=== PATIENT | female | born 1960 | race Two or more races ===

== ENCOUNTER 2016-06-05 12:15 | Inpatient (IN) | payer MEDICAID ==
[2016-06-05] VITALS (7 sets, daily range): BP systolic 96–166; BP diastolic 53–89
[~2016-06-05] VITALS: Ht 160 cm; Wt 104.3 kg
[2016-06-05 13:11] LABS: MEAN CORPUSCULAR HGB CONC 33.5 G/DL (32.0-36.0); MEAN CORPUSCULAR VOLUME 90 FL (80-99); MEAN PLATELET VOLUME 10.7 FL (6.5-10.1); PLATELET COUNT 182 K/UL (150-450); RED CELL DISTRIBUTION WIDTH 11.2 % (11.6-14.8); WHITE BLOOD COUNT 21.2 K/UL (4.8-10.8)
[2016-06-05 13:16] LABS: TROPONIN I < 0.30 ng/mL (<=0.30)
[2016-06-05 13:19] LABS: ALBUMIN/GLOBULIN RATIO 1.2 (1.0-2.7); CALCIUM 9.9 mg/dL (8.6-10.2); CREATININE 1.1 mg/dL (0.5-0.9); GLOMERULAR FILTRATION RATE 51.3 mL/min (>60); POTASSIUM 5.2 mEQ/L (3.4-4.9); TOTAL PROTEIN 7.2 g/dL (6.6-8.7)
[2016-06-05 14:01] LABS: ANISOCYTOSIS 1+; BAND NEUTROPHILS % (MANUAL) 2 % (0-8); BASOPHILS % (MANUAL) 0 % (0-2); EOSINOPHILS % (MANUAL) 0 % (0-3); LYMPHOCYTES % (MANUAL) 7 % (20-45); NEUTROPHILS % (MANUAL) 86 % (45-75); PLATELET ESTIMATE ADEQUATE; PLATELET MORPHOLOGY NORMAL; TOTAL CELLS COUNTED 100
[2016-06-05 14:44] LABS: KETONES,URINE 1+ (NEGATIVE); LEUKOCYTE ESTERASE ,URINE 3+ (NEGATIVE); NITRITE,URINE NEGATIVE (NEGATIVE); PH,URINE 6 (4.5-8.0); PROTEIN,URINE 1+ (NEGATIVE); UROBILINOGEN,URINE NORMAL MG/DL (0.0-1.0)
[2016-06-05] MEDS ORDERED: cefTRIAXone 1 GM in NS 55 ML IVPB ONE (15:30)
--- NOTE | 2016-06-05 15:31 | Emergency Room Report ---
History of Present Illness General Chief Complaint: Abdominal Pain Source: Patient, EMS (JOANNA IVAN D.O.) Present Illness HPI This pt states that she has had lower abdominal pain for the past couple days. She also has fever/chills. No vomiting. +constipation. No diarrhea. No diarrhea. No cp/sob. No other complaints. She also notes that her BS has been elevated. (JOANNA IVAN D.O.) Allergies: Coded Allergies: No Known Allergies (Unverified , 06/05/16) Patient History Past Medical History: see triage record, DM, HTN Social History: Denies: alcohol use, drug use, smoking Reviewed Nursing Documentation: PMH: Agreed, PSxH: Agreed (JOANNA IVAN D.O. ) Nursing Documentation-PMH Past Medical History: No History, Except For Hx Hypertension: Yes Hx Diabetes: Yes (JOANNA IVAN D.O.) Review of Systems All Other Systems: negative except mentioned in HPI (JOANNA IVAN D.O.) Physical Exam Vital Signs Date Time Temp Pulse Resp B/P Pulse Ox O2 Delivery O2 Flow Rate FiO2 06/05/16 12:12 97 20 117/66 97 Room Air Sp02 EP Interpretation: reviewed, normal General Appearance: no apparent distress, alert, GCS 15, non-toxic Head: normocephalic, atraumatic Eyes: bilateral eye PERRL, bilateral eye normal inspection ENT: hearing grossly normal, normal pharynx, no angioedema, normal voice Neck: full range of motion, supple/symm/no masses Respiratory: chest non-tender, lungs clear, normal breath sounds, speaking full sentences Cardiovascular #1: regular rate, rhythm, no edema Gastrointestinal: normal bowel sounds, soft, non-distended, no guarding, no rebound, tenderness - LLQ and L. CVA ttp Rectal: deferred Genitourinary: normal inspection, CVA tenderness (L) Musculoskeletal: non-tender Neurologic: alert, oriented x3, responsive, motor strength/tone normal, sensory intact, speech normal Psychiatric: judgement/insight normal, memory normal, mood/affect normal, no suicidal/homicidal ideation Skin: normal color, no rash, warm/dry, well hydrated (JOANNA IVAN D.O.) Medical Decision Making Diagnostic Impression: Primary Impression: Pyelonephritis Additional Impressions: Hyperglycemia Uncontrolled diabetes mellitus ER Course This pt presents with elevated WBC. She is found to have pyelonephritis. She is ttp on PE, so I am obtaining a CT abdomen and pelvis to assess for diverticulitis, infected stone or other intra-abdominal process that could be causing such a high elevation in WBC. She was given broad spectrum abx and aggressive IVF given the uncontrolled DM. CT is pending at this time. Inpatient physician to f/u on results. She will be admitted to [facility]. Labs Test 06/05/16 12:30 06/05/16 14:30 White Blood Count 21.2 K/UL (4.8-10.8) Red Blood Count 5.10 M/UL (4.20-5.40) Hemoglobin 15.3 G/DL (12.0-16.0) Hematocrit 45.7 % (37.0-47.0) Mean Corpuscular Volume 90 FL (80-99) Mean Corpuscular Hemoglobin 30.0 PG (27.0-31.0) Mean Corpuscular Hemoglobin Concent 33.5 G/DL (32.0-36.0) Red Cell Distribution Width 11.2 % (11.6-14.8) Platelet Count 182 K/UL (150-450) Mean Platelet Volume 10.7 FL (6.5-10.1) Neutrophils (%) (Auto) % (45.0-75.0) Lymphocytes (%) (Auto) % (20.0-45.0) Monocytes (%) (Auto) % (1.0-10.0) Eosinophils (%) (Auto) % (0.0-3.0) Basophils (%) (Auto) % (0.0-2.0) Differential Total Cells Counted 100 Neutrophils % (Manual) 86 % (45-75) Lymphocytes % (Manual) 7 % (20-45) Monocytes % (Manual) 5 % (1-10) Eosinophils % (Manual) 0 % (0-3) Basophils % (Manual) 0 % (0-2) Band Neutrophils 2 % (0-8) Platelet Estimate Adequate Platelet Morphology Normal Anisocytosis 1+ Sodium Level 138 mEQ/L (135-145) Potassium Level 5.2 mEQ/L (3.4-4.9) Chloride Level 96 mEQ/L (98-107) Carbon Dioxide Level 24 mEQ/L (20-30) Anion Gap 18 (5-15) Blood Urea Nitrogen 19 mg/dL (7-23) Creatinine 1.1 mg/dL (0.5-0.9) Estimat Glomerular Filtration Rate 51.3 mL/min (>60) Glucose Level 425 mg/dL (74-106) Calcium Level 9.9 mg/dL (8.6-10.2) Total Bilirubin 0.4 mg/dL (0.0-1.2) Aspartate Amino Transf (AST/SGOT) 24 U/L (5-40) Alanine Aminotransferase (ALT/SGPT) 16 U/L (3-33) Alkaline Phosphatase 97 U/L (35-104) Troponin I < 0.30 ng/mL (<=0.30) Total Protein 7.2 g/dL (6.6-8.7) Albumin 4.0 g/dL (3.5-5.2) Globulin 3.2 g/dL Albumin/Globulin Ratio 1.2 (1.0-2.7) Lipase 32 U/L (< 60) Urine Color Yellow Urine Appearance Clear Urine pH 6 (4.5-8.0) Urine Specific [place] 1.010 (1.005-1.035) Urine Protein 1+ (NEGATIVE) Urine Glucose (UA) 4+ (NEGATIVE) Urine Ketones 1+ (NEGATIVE) Urine Occult Blood 5+ (NEGATIVE) Urine Nitrite Negative (NEGATIVE) Urine Bilirubin Negative (NEGATIVE) Urine Urobilinogen Normal MG/DL (0.0-1.0) Urine Leukocyte Esterase 3+ (NEGATIVE) Urine HCG, Qualitative Negative (JOANNA IVAN D.O.) ER Course Please refer to the initial note for the history exam and initial workup At this time patient's white blood cell count is elevated Urine sample appears infected CT was obtained to evaluate further pathology which was essentially benign Patient initiated on IV antibiotics and fluids Glucose is also elevated and patient admitted for further inpatient care Labs Test 06/05/16 12:30 06/05/16 14:30 White Blood Count 21.2 K/UL (4.8-10.8) Red Blood Count 5.10 M/UL (4.20-5.40) Hemoglobin 15.3 G/DL (12.0-16.0) Hematocrit 45.7 % (37.0-47.0) Mean Corpuscular Volume 90 FL (80-99) Mean Corpuscular Hemoglobin 30.0 PG (27.0-31.0) Mean Corpuscular Hemoglobin Concent 33.5 G/DL (32.0-36.0) Red Cell Distribution Width 11.2 % (11.6-14.8) Platelet Count 182 K/UL (150-450) Mean Platelet Volume 10.7 FL (6.5-10.1) Neutrophils (%) (Auto) % (45.0-75.0) Lymphocytes (%) (Auto) % (20.0-45.0) Monocytes (%) (Auto) % (1.0-10.0) Eosinophils (%) (Auto) % (0.0-3.0) Basophils (%) (Auto) % (0.0-2.0) Differential Total Cells Counted 100 Neutrophils % (Manual) 86 % (45-75) Lymphocytes % (Manual) 7 % (20-45) Monocytes % (Manual) 5 % (1-10) Eosinophils % (Manual) 0 % (0-3) Basophils % (Manual) 0 % (0-2) Band Neutrophils 2 % (0-8) Platelet Estimate Adequate Platelet Morphology Normal Anisocytosis 1+ Sodium Level 138 mEQ/L (135-145) Potassium Level 5.2 mEQ/L (3.4-4.9) Chloride Level 96 mEQ/L (98-107) Carbon Dioxide Level 24 mEQ/L (20-30) Anion Gap 18 (5-15) Blood Urea Nitrogen 19 mg/dL (7-23) Creatinine 1.1 mg/dL (0.5-0.9) Estimat Glomerular Filtration Rate 51.3 mL/min (>60) Glucose Level 425 mg/dL (74-106) Calcium Level 9.9 mg/dL (8.6-10.2) Total Bilirubin 0.4 mg/dL (0.0-1.2) Aspartate Amino Transf (AST/SGOT) 24 U/L (5-40) Alanine Aminotransferase (ALT/SGPT) 16 U/L (3-33) Alkaline Phosphatase 97 U/L (35-104) Troponin I < 0.30 ng/mL (<=0.30) Total Protein 7.2 g/dL (6.6-8.7) Albumin 4.0 g/dL (3.5-5.2) Globulin 3.2 g/dL Albumin/Globulin Ratio 1.2 (1.0-2.7) Lipase 32 U/L (< 60) Urine Color Yellow Urine Appearance Slightly cloudy Urine pH 6 (4.5-8.0) Urine Specific [place] 1.010 (1.005-1.035) Urine Protein 1+ (NEGATIVE) Urine Glucose (UA) 4+ (NEGATIVE) Urine Ketones 1+ (NEGATIVE) Urine Occult Blood 5+ (NEGATIVE) Urine Nitrite Negative (NEGATIVE) Urine Bilirubin Negative (NEGATIVE) Urine Urobilinogen Normal MG/DL (0.0-1.0) Urine Leukocyte Esterase 3+ (NEGATIVE) Urine HCG, Qualitative Negative (STEPH BLACK.Maureen) Rhythm Strip Diag. Results EP Interpretation: yes Rate: 90's Rhythm: NSR, no PVC's, no ectopy (JOANNA IVAN.Elmer.) EP Interpretation: yes Rate: 66 Rhythm: NSR, no PVC's, no ectopy (STEPH BLACK.Elmer.) Chest X-Ray Diagnostic Results EP Interpretation: Yes Findings: no consolidation, no effusion, no pneumothorax (STEPH BLACK.Elmer.) CT/MRI/US Diagnostic Results CT/MRI/US Diagnostic Results : Imaging Test Ordered: CT ABD/PELVIS (JOANNA IVAN.O.) CT/MRI/US Diagnostic Results : Impression CT abdomen pelvisIMPRESSION: Apparent long segment mural thickening of sigmoid colon and rectum, may be due to poor distention. Pathologic mural thickening, especially but not necessarily limited to proctocolitis, must be considered. Colonoscopy suggested for further evaluation. No other evidence of acute abdominopelvic disease, with limitation as described. Subtle but potentially significant abnormalities the gastrointestinal tract may be missed. Repeat CT scan with full oral and IV contrast preparation recommended for more complete evaluation, as clinically indicated Hepatic steatosis Diffuse pancreatic atrophy Probable small right renal cortical cyst Suggestion of left hydrosalpinx. Ultrasound correlation recommended. Pulmonary bibasal interstitial prominence, nonspecific, acuity indeterminate Degenerative spondylosis (STEPH BLACK D.O.) Last Vital Signs Date Time Temp Pulse Resp B/P Pulse Ox O2 Delivery O2 Flow Rate FiO2 06/05/16 12:16 20 117/66 97 Room Air 06/05/16 12:12 97 (JOANNA IVAN D.O.) Status: improved (STEPH BLACK D.O.) Disposition: ADMITTED INPATIENT Condition: Serious Scripts Metronidazole* (FLAGYL*) 500 Mg Tablet 500 MG ORAL EVERY 8 HOURS, #15 TAB Prov: Jordan (Temi),July [employer] 06/08/16 Ciprofloxacin* (CIPRO*) 500 Mg Tablet 500 MG PO BID, #10 TAB Prov: July Ortega NP (Vanchtein) 06/08/16 Referrals: [facility],REFERRING (PCP) JOANNA IVAN D.O. Jun 05, 2016 15:31 STEPH BLACK D.O. Jun 05, 2016 18:45
--- NOTE | 2016-06-05 16:06 | Diagnostic Imaging Report ---
Indications: Right lower quadrant abdominal pain, nausea, constipation for 2 days Technique: Continuous helical CT imaging of the abdomen and pelvis was performed with automatic exposure control following administration of nonionic IV contrast only, on a Siemens sensation [address] scanner. Axial, coronal, sagittal images were reconstructed at 5 mm slice thickness. No oral contrast was administered per requesting physician's order, despite no contraindications listed in either submitted clinical data or tech note.. CTDI volume(s): 19 mGy Total DLP: 1043 mGy-cm Findings: Comparison: None Lack of oral contrast limits evaluation of gastrointestinal tract, nondilated throughout. Appendix unremarkable. Colon from descending sigmoid junction through rectum is poorly distended with suggestion of circumferential mural thickening. No additional mural thickening, adjacent stranding, extraluminal gas or fluid collections identified. Liver demonstrates mildly, diffusely decreased parenchymal attenuation. Pancreas demonstrates diffuse parenchymal fatty replacement. 3 mm circumscribed low-attenuation focus upper pole cortex right kidney too small to accurately characterize. Elongated/tubular low-attenuation focus in left adnexal region, 1 cm diameter by 4.5 cm in length, adjacent to left ovary. Gallbladder, spleen, adrenal glands, left kidney, unopacified ureters and urinary bladder, uterus, right adnexal region, vascular structures, retroperitoneum, mesentery, remainder visualized abdominopelvic anatomy unremarkable. Mildly increased interstitial markings in both lung bases. Disc marginal osteophytes scattered throughout lumbar, lower thoracic spine. IMPRESSION: Apparent long segment mural thickening of sigmoid colon and rectum, may be due to poor distention. Pathologic mural thickening, especially but not necessarily limited to proctocolitis, must be considered. Colonoscopy suggested for further evaluation. No other evidence of acute abdominopelvic disease, with limitation as described. Subtle but potentially significant abnormalities the gastrointestinal tract may be missed. Repeat CT scan with full oral and IV contrast preparation recommended for more complete evaluation, as clinically indicated Hepatic steatosis Diffuse pancreatic atrophy Probable small right renal cortical cyst Suggestion of left hydrosalpinx. Ultrasound correlation recommended. Pulmonary bibasal interstitial prominence, nonspecific, acuity indeterminate Degenerative spondylosis
[2016-06-05 16:10] LABS: APPEARANCE,URINE SLIGHTLY CLOUDY
[2016-06-05] MEDS ORDERED: Ketorolac 30mg Inj IV PRN (18:45)
[2016-06-05] MEDS ORDERED: Miralax 17gm pkt ORAL PRN (18:45)
[2016-06-05] MEDS ORDERED: Morphine Sulfate 2mg/ml Inj IVP PRN (18:45)
[2016-06-05] MEDS ORDERED: Nitroglycerin Subl 0.4mg tab (Bottle Of 25) SL PRN (18:45)
[2016-06-05] MEDS ORDERED: Mylanta II UD 30ml ORAL PRN (18:45)
[2016-06-05] MEDS ORDERED: DuoNeb 0.5-3(2.5)mg/3ml neb HHN PRN (18:45)
[2016-06-05] MEDS ORDERED: GLIPIZIDE XL10 MG ORAL (19:45)
[2016-06-05] MEDS ORDERED: ASPIRIN-LOW81 MG ORAL (19:51)
[2016-06-05] MEDS ORDERED: METFORMIN HCL1000 M1 ORAL (19:51)
[2016-06-05] MEDS ORDERED: AMLODIPINE BESYL5 MG ORAL (19:51)
[2016-06-05] MEDS ORDERED: BENAZEPRIL HCL40 MG ORAL (19:51)
[2016-06-05] MEDS ORDERED: SIMVASTATIN10 MG ORAL (19:59)
[2016-06-05] MEDS ORDERED: JANUVIA25 MG ORAL (20:12)
[2016-06-05] MEDS ORDERED: Heparin 5000 units/ml inj SUBQ SCH (21:00)
[2016-06-05] MEDS: NovoLOG Insulin Flexpen SUBQ SCH (21:49)
[2016-06-05] MEDS: Piperacillin/Tazobactam 3.375 GM in NS 110 ML IVPB SCH (21:50)
[2016-06-06] VITALS (7 sets, daily range): BP systolic 84–148; BP diastolic 75–80
[2016-06-06] MEDS: Piperacillin/Tazobactam 3.375 GM in NS 110 ML IVPB SCH ×3 (05:09→21:15)
[2016-06-06] MEDS: NovoLOG Insulin Flexpen SUBQ SCH ×3 (06:06→21:17)
[2016-06-06 07:42] LABS: MEAN CORPUSCULAR HEMOGLOBIN 29.7 PG (27.0-31.0); MEAN CORPUSCULAR HGB CONC 33.5 G/DL (32.0-36.0); MEAN CORPUSCULAR VOLUME 89 FL (80-99); MEAN PLATELET VOLUME 11.6 FL (6.5-10.1); PLATELET COUNT 181 K/UL (150-450); WHITE BLOOD COUNT 18.9 K/UL (4.8-10.8)
[2016-06-06 08:08] LABS: ALANINE AMINOTRANSFERASE 14 U/L (3-33); ALBUMIN/GLOBULIN RATIO 1.2 (1.0-2.7); ANION GAP 18 (5-15); ASPARTATE AMINO TRANSFERASE 13 U/L (5-40); CARBON DIOXIDE 22 mEQ/L (20-30); CHLORIDE 98 mEQ/L (98-107); CHOLESTEROL 138 mg/dL (< 200); CHOLESTEROL/HDL RATIO 1.9 (3.3-4.4); CREATININE 0.9 mg/dL (0.5-0.9); GLOMERULAR FILTRATION RATE > 60 mL/min (>60); HEMOLYSIS 2; LDL CHOLESTEROL (CALC.) 51 mg/dL (60-99); SODIUM 138 mEQ/L (135-145); TOTAL PROTEIN 6.5 g/dL (6.6-8.7)
[2016-06-06 08:37] LABS: HEMOGLOBIN A1C 11.2 % (< 6.0)
[2016-06-06 08:51] LABS: BAND NEUTROPHILS % (MANUAL) 0 % (0-8); BASOPHILS % (MANUAL) 1 % (0-2); EOSINOPHILS % (MANUAL) 0 % (0-3); LYMPHOCYTES % (MANUAL) 6 % (20-45); NEUTROPHILS % (MANUAL) 89 % (45-75); PLATELET ESTIMATE ADEQUATE; PLATELET MORPHOLOGY NORMAL; TOTAL CELLS COUNTED 100
--- NOTE | 2016-06-06 10:03 | Diagnostic Imaging Report ---
Indication: SOB Technique: One view of the chest Comparison: none Findings: Body habitus limits evaluation. Lungs and pleural spaces are clear. Heart size is normal. Inspiration is suboptimal Impression: No acute process
--- NOTE | 2016-06-06 12:50 | GI Initial Consult Note ---
History of Present Illness General Date patient seen: Jun 06, 2016 Time patient seen: 10:00 Reason for Hospitalization: Abdominal Pain Referring physician: JANEEN LADD Reason for Consultation: LGIB Present Illness HPI 55 year old female BIB [facility] c/o of abdominal pain 6/10, nausea and constipation for approximately 2 days. GI consulted for bright red bloody stools x 2 last night as reported by the RN. Pt seen on floor, awake A&O NAD with no active s/sx of N/V. Patient has hx of DM, HTN. APCT shows mural thickening of sigmoid colon and rectum, see full report below. Patient presents today with leukocytosis. Unknown history of endoscopic history. Rhythm Strip Diag. Results EP Interpretation: yes Rate: 66 Rhythm: NSR, no PVC's, no ectopy Chest X-Ray Diagnostic Results EP Interpretation: Yes Findings: no consolidation, no effusion, no pneumothorax CT/MRI/US Diagnostic Results CT/MRI/US Diagnostic Results : Imaging Test Ordered: CT ABD/PELVIS CT/MRI/US Diagnostic Results : Impression CT abdomen pelvis IMPRESSION: Apparent long segment mural thickening of sigmoid colon and rectum, may be due to poor distention. Pathologic mural thickening, especially but not necessarily limited to proctocolitis, must be considered. Colonoscopy suggested for further evaluation. No other evidence of acute abdominopelvic disease, with limitation as described. Subtle but potentially significant abnormalities the gastrointestinal tract may be missed. Repeat CT scan with full oral and IV contrast preparation recommended for more complete evaluation, as clinically indicated Hepatic steatosis Diffuse pancreatic atrophy Probable small right renal cortical cyst Suggestion of left hydrosalpinx. Ultrasound correlation recommended. Pulmonary bibasal interstitial prominence, nonspecific, acuity indeterminate Degenerative spondylosis Home Meds Reported Medications Sitagliptin* (JANUVIA*) 25 Mg Tablet, 25 MG ORAL DAILY, TAB 06/05/16 Simvastatin (ZOCOR) 10 Mg Tablet, 10 MG ORAL BEDTIME, #30 TAB 06/05/16 Benazepril Hcl* (BENAZEPRIL HCL*) 40 Mg Tablet, 40 MG ORAL DAILY, #30 06/05/16 Aspirin (Aspirin EC) 81 Mg Tablet.dr, 81 MG ORAL DAILY, #30 06/05/16 Amlodipine Besylate* (AMLODIPINE BESYLATE*) 5 Mg Tablet, 5 MG ORAL DAILY, #30 06/05/16 Metformin Hcl* (METFORMIN HCL*) 1,000 Mg Tablet, 1000 MG ORAL BID, #60 06/05/16 Glipizide (Glipizide) 10 Mg Tablet, 10 MG ORAL BID, #120 06/05/16 Med list reviewed/reconciled: Yes Allergies: Coded Allergies: No Known Allergies (Unverified , 06/05/16) Patient History History Provided By: Patient, Medical Record PMH Narrative DM HTN Review of Systems All Other Systems: limited Physical Exam Vital Signs Date Time Temp Pulse Resp B/P Pulse Ox O2 Delivery O2 Flow Rate FiO2 06/05/16 12:12 97 20 117/66 97 Room Air 06/05/16 16:12 99.8 Sp02 EP Interpretation: reviewed Labs Laboratory Tests Test 06/05/16 14:30 06/06/16 06:40 Urine Color Yellow Urine Appearance Slightly cloudy Urine pH 6 (4.5-8.0) Urine Specific [place] 1.010 (1.005-1.035) Urine Protein 1+ (NEGATIVE) H Urine Glucose (UA) 4+ (NEGATIVE) H Urine Ketones 1+ (NEGATIVE) H Urine Occult Blood 5+ (NEGATIVE) H Urine Nitrite Negative (NEGATIVE) Urine Bilirubin Negative (NEGATIVE) Urine Urobilinogen Normal MG/DL (0.0-1.0) Urine Leukocyte Esterase 3+ (NEGATIVE) H Urine HCG, Qualitative Negative White Blood Count 18.9 K/UL (4.8-10.8) H Red Blood Count 4.70 M/UL (4.20-5.40) Hemoglobin 14.0 G/DL (12.0-16.0) Hematocrit 41.7 % (37.0-47.0) Mean Corpuscular Volume 89 FL (80-99) Mean Corpuscular Hemoglobin 29.7 PG (27.0-31.0) Mean Corpuscular Hemoglobin Concent 33.5 G/DL (32.0-36.0) Red Cell Distribution Width 11.0 % (11.6-14.8) L Platelet Count 181 K/UL (150-450) Mean Platelet Volume 11.6 FL (6.5-10.1) H Neutrophils (%) (Auto) % (45.0-75.0) Lymphocytes (%) (Auto) % (20.0-45.0) Monocytes (%) (Auto) % (1.0-10.0) Eosinophils (%) (Auto) % (0.0-3.0) Basophils (%) (Auto) % (0.0-2.0) Differential Total Cells Counted 100 Neutrophils % (Manual) 89 % (45-75) H Lymphocytes % (Manual) 6 % (20-45) L Monocytes % (Manual) 4 % (1-10) Eosinophils % (Manual) 0 % (0-3) Basophils % (Manual) 1 % (0-2) Band Neutrophils 0 % (0-8) Platelet Estimate Adequate Platelet Morphology Normal Red Blood Cell Morphology Normal Sodium Level 138 mEQ/L (135-145) Potassium Level 4.0 mEQ/L (3.4-4.9) Chloride Level 98 mEQ/L (98-107) Carbon Dioxide Level 22 mEQ/L (20-30) Anion Gap 18 (5-15) H Blood Urea Nitrogen 16 mg/dL (7-23) Creatinine 0.9 mg/dL (0.5-0.9) Estimat Glomerular Filtration Rate > 60 mL/min (>60) Glucose Level 336 mg/dL (74-106) H Hemoglobin A1c 11.2 % (< 6.0) H Calcium Level 9.0 mg/dL (8.6-10.2) Total Bilirubin 0.5 mg/dL (0.0-1.2) Aspartate Amino Transf (AST/SGOT) 13 U/L (5-40) Alanine Aminotransferase (ALT/SGPT) 14 U/L (3-33) Alkaline Phosphatase 72 U/L (35-104) Total Protein 6.5 g/dL (6.6-8.7) L Albumin 3.6 g/dL (3.5-5.2) Globulin 2.9 g/dL Albumin/Globulin Ratio 1.2 (1.0-2.7) Triglycerides Level 64 mg/dL (< 150) Cholesterol Level 138 mg/dL (< 200) LDL Cholesterol 51 mg/dL (60-99) L HDL Cholesterol 74 mg/dL (> 60) H Cholesterol/HDL Ratio 1.9 (3.3-4.4) L Thyroid Stimulating Hormone (TSH) 1.400 uIU/mL (0.300-4.500) General Appearance: no apparent distress, alert, obese Head: normocephalic EENT: normal ENT inspection Neck: supple Respiratory: normal breath sounds, no respiratory distress Cardiovascular: normal rate Gastrointestinal: normal inspection, non tender, soft Rectal: blood streaked stool Neurologic: normal inspection, alert, oriented x3, responsive Psychiatric: normal inspection, judgement/insight normal, memory normal Skin: normal inspection, normal color, no rash, warm/dry Lymphatic: normal inspection, no adenopathy Current Medications Current Medications Medications (Trade) Dose Ordered Sig/Carlo Route PRN Reason Start Time Stop Time Status Last Admin Dose Admin Acetaminophen (Tylenol) 650 mg Q4H PRN ORAL fever 06/05/16 18:45 07/05/16 18:44 Al Hydroxide/Mg Hydroxide (Mylanta II) 30 ml Q6H PRN ORAL dyspepsia 06/05/16 18:45 07/05/16 18:44 Albuterol/ Ipratropium (DuoNeb 0.5-3(2.5)mg/3ml) 3 ml Q4H PRN HHN Shortness of Breath 06/05/16 18:45 06/10/16 18:44 Bisacodyl (Dulcolax) 10 mg ONCE ONCE ORAL 06/06/16 16:00 06/06/16 16:01 Clonidine HCl (Catapres) 0.1 mg Q4H PRN ORAL sbp more than 160 06/05/16 18:45 07/05/16 18:44 Dextrose (Dextrose 50%) STAT PRN IV Hypoglycemia 06/05/16 18:45 07/05/16 18:44 Insulin Aspart (NovoLOG) BEFORE MEALS AND HS SUBQ 06/05/16 21:00 07/05/16 20:59 06/06/16 11:31 Ketorolac Tromethamine (Toradol 30mg) 30 mg Q6H PRN IV moderate pain 4-6 06/05/16 18:45 06/10/16 18:44 Morphine Sulfate (Morphine Sulfate) 2 mg Q4H PRN IVP severe pain 7-10 06/05/16 18:45 06/12/16 18:44 Nitroglycerin (Ntg) 0.4 mg Q5M X 3 DOSES PRN SL Prn Chest Pain 06/05/16 18:45 07/05/16 18:44 Ondansetron HCl (Zofran) 4 mg Q6H PRN IVP Nausea & Vomiting 06/05/16 18:45 07/05/16 18:44 Piperacillin Sod/ Tazobactam Sod/ Sodium Chloride (Zosyn/Sodium Chloride) 110 ml @ 27.5 mls/hr Q8HR IVPB 06/05/16 22:00 06/12/16 21:59 06/06/16 05:09 Polyethylene Glycol (Miralax) 17 gm HSPRN PRN ORAL Constipation 06/05/16 18:45 07/05/16 18:44 Polyethylene Glycol/ Electrolytes (Nulytely) 4,000 ml ONCE ONCE ORAL 06/06/16 16:00 06/06/16 16:01 Sodium Chloride (Sodium Chloride 1000ml bag) 1,000 ml @ 100 mls/hr Q10H IVLG 06/05/16 19:00 07/05/16 18:59 06/05/16 21:30 Sodium Phosphate (Fleet's Sodium Phosl Enema) 133 ml ONCE ONCE RECTAL 06/06/16 23:00 06/06/16 23:01 Temazepam (Restoril) 15 mg HSPRN PRN ORAL Insomnia 06/05/16 18:45 06/12/16 18:44 Vancomycin HCl 1 ea 1 ea DAILY PRN MISC Per rx protocol 06/05/16 18:45 07/05/16 18:44 GI: Plan Problems: (1) Bloody stools (2) Colon wall thickening (3) Leukocytosis (4) Colonoscopy planned (5) Abdominal pain (6) Uncontrolled diabetes mellitus Plan APCT reviewed >> mural thickening of sigmoid colon and rectum, see full report. pt RESCHEDULED for colonoscopy saturday okay for ADA diet today, CLD tomorrow starting breakfast. abx H2 fu labs Discussed with Dr. Bailon. Thank you for referring this patient, we will follow. Salima Varela N.P. Jun 06, 2016 12:50
--- NOTE | 2016-06-06 14:23 | History and Physical ---
History of Present Illness General Date patient seen: Jun 06, 2016 Reason for Hospitalization: Abdominal Pain Present Illness HPI 55 year old female with hx of dm, htn biba with cc of fever, flank pain, pt is diagnosed to have pyelonephritis and admitted for further evaluation Allergies: Coded Allergies: No Known Allergies (Unverified , 06/05/16) Medication History Scheduled Amlodipine Besylate* (Amlodipine Besylate*), 5 MG ORAL DAILY, (Reported) Aspirin (Aspirin EC), 81 MG ORAL DAILY, (Reported) Benazepril Hcl* (Benazepril Hcl*), 40 MG ORAL DAILY, (Reported) Glipizide (Glipizide), 10 MG ORAL BID, (Reported) Metformin Hcl* (Metformin Hcl*), 1,000 MG ORAL BID, (Reported) Simvastatin (Zocor), 10 MG ORAL BEDTIME, (Reported) Sitagliptin* (Januvia*), 25 MG ORAL DAILY, (Reported) Patient History Healthcare decision maker N Resuscitation status Full Code Advanced Directive on File No Past Medical/Surgical History Past Medical/Surgical History: (1) Uncontrolled diabetes mellitus Review of Systems All Other Systems: negative except mentioned in HPI Physical Exam General Appearance: WD/WN Lines, tubes and drains: peripheral, PICC HEENT: normocephalic, atraumatic Neck: non-tender Respiratory/Chest: chest wall non-tender, lungs clear Cardiovascular/Chest: normal peripheral pulses, normal rate Last 24 Hour Vital Signs Date Time Temp Pulse Resp B/P Pulse Ox O2 Delivery O2 Flow Rate FiO2 06/06/16 11:37 97.0 74 18 148/80 99 Room Air 06/06/16 08:00 16 06/06/16 07:51 97.0 93 18 135/80 95 Room Air 06/06/16 04:00 80 06/06/16 04:00 98.8 96 18 122/80 96 Room Air 06/06/16 01:46 89 140/77 06/06/16 00:00 98.8 102 18 84/ 96 Room Air 06/06/16 00:00 89 06/05/16 20:20 98.1 104 20 153/87 96 Room Air 06/05/16 19:47 100 18 158/77 97 Room Air 06/05/16 19:23 99.8 92 20 141/82 95 Room Air 06/05/16 17:59 101 20 148/89 94 Room Air 06/05/16 16:12 99.8 99 20 155/78 97 Room Air Intake and Output 06/05/16 06/06/16 19:00 07:00 Intake Total 2050 ml 737.5 ml Output Total 3 ml Balance 2050 ml 734.5 ml Intake Oral 0 ml IV Total 2050 ml 737.5 ml Output Urine Total 3 ml # Bowel Movements 1 Laboratory Tests Test 06/05/16 14:30 06/06/16 06:40 Urine Color Yellow Urine Appearance Slightly cloudy Urine pH 6 (4.5-8.0) Urine Specific [place] 1.010 (1.005-1.035) Urine Protein 1+ (NEGATIVE) H Urine Glucose (UA) 4+ (NEGATIVE) H Urine Ketones 1+ (NEGATIVE) H Urine Occult Blood 5+ (NEGATIVE) H Urine Nitrite Negative (NEGATIVE) Urine Bilirubin Negative (NEGATIVE) Urine Urobilinogen Normal MG/DL (0.0-1.0) Urine Leukocyte Esterase 3+ (NEGATIVE) H Urine HCG, Qualitative Negative White Blood Count 18.9 K/UL (4.8-10.8) H Red Blood Count 4.70 M/UL (4.20-5.40) Hemoglobin 14.0 G/DL (12.0-16.0) Hematocrit 41.7 % (37.0-47.0) Mean Corpuscular Volume 89 FL (80-99) Mean Corpuscular Hemoglobin 29.7 PG (27.0-31.0) Mean Corpuscular Hemoglobin Concent 33.5 G/DL (32.0-36.0) Red Cell Distribution Width 11.0 % (11.6-14.8) L Platelet Count 181 K/UL (150-450) Mean Platelet Volume 11.6 FL (6.5-10.1) H Neutrophils (%) (Auto) % (45.0-75.0) Lymphocytes (%) (Auto) % (20.0-45.0) Monocytes (%) (Auto) % (1.0-10.0) Eosinophils (%) (Auto) % (0.0-3.0) Basophils (%) (Auto) % (0.0-2.0) Differential Total Cells Counted 100 Neutrophils % (Manual) 89 % (45-75) H Lymphocytes % (Manual) 6 % (20-45) L Monocytes % (Manual) 4 % (1-10) Eosinophils % (Manual) 0 % (0-3) Basophils % (Manual) 1 % (0-2) Band Neutrophils 0 % (0-8) Platelet Estimate Adequate Platelet Morphology Normal Red Blood Cell Morphology Normal Sodium Level 138 mEQ/L (135-145) Potassium Level 4.0 mEQ/L (3.4-4.9) Chloride Level 98 mEQ/L (98-107) Carbon Dioxide Level 22 mEQ/L (20-30) Anion Gap 18 (5-15) H Blood Urea Nitrogen 16 mg/dL (7-23) Creatinine 0.9 mg/dL (0.5-0.9) Estimat Glomerular Filtration Rate > 60 mL/min (>60) Glucose Level 336 mg/dL (74-106) H Hemoglobin A1c 11.2 % (< 6.0) H Calcium Level 9.0 mg/dL (8.6-10.2) Total Bilirubin 0.5 mg/dL (0.0-1.2) Aspartate Amino Transf (AST/SGOT) 13 U/L (5-40) Alanine Aminotransferase (ALT/SGPT) 14 U/L (3-33) Alkaline Phosphatase 72 U/L (35-104) Total Protein 6.5 g/dL (6.6-8.7) L Albumin 3.6 g/dL (3.5-5.2) Globulin 2.9 g/dL Albumin/Globulin Ratio 1.2 (1.0-2.7) Triglycerides Level 64 mg/dL (< 150) Cholesterol Level 138 mg/dL (< 200) LDL Cholesterol 51 mg/dL (60-99) L HDL Cholesterol 74 mg/dL (> 60) H Cholesterol/HDL Ratio 1.9 (3.3-4.4) L Thyroid Stimulating Hormone (TSH) 1.400 uIU/mL (0.300-4.500) Microbiology Date/Time Source Procedure Growth Status 06/05/16 14:30 Urine,Clean Catch Urine Culture - Preliminary Gram Negative Bacillus 1 Resulted Height (Feet): 5 Height (Inches): 3.00 Weight (Pounds): 230 Medications Current Medications Medications (Trade) Dose Ordered Sig/Carlo Route PRN Reason Start Time Stop Time Status Last Admin Dose Admin Acetaminophen (Tylenol) 650 mg Q4H PRN ORAL fever 06/05/16 18:45 07/05/16 18:44 Al Hydroxide/Mg Hydroxide (Mylanta II) 30 ml Q6H PRN ORAL dyspepsia 06/05/16 18:45 07/05/16 18:44 Albuterol/ Ipratropium (DuoNeb 0.5-3(2.5)mg/3ml) 3 ml Q4H PRN HHN Shortness of Breath 06/05/16 18:45 06/10/16 18:44 Bisacodyl (Dulcolax) 10 mg ONCE ONCE ORAL 06/06/16 16:00 06/06/16 16:01 Clonidine HCl (Catapres) 0.1 mg Q4H PRN ORAL sbp more than 160 06/05/16 18:45 07/05/16 18:44 Dextrose (Dextrose 50%) STAT PRN IV Hypoglycemia 06/05/16 18:45 07/05/16 18:44 Famotidine (Pepcid I.v.) 20 mg Q12HR IVP 06/06/16 21:00 07/06/16 20:59 Insulin Aspart (NovoLOG) BEFORE MEALS AND HS SUBQ 06/05/16 21:00 07/05/16 20:59 06/06/16 11:31 Ketorolac Tromethamine (Toradol 30mg) 30 mg Q6H PRN IV moderate pain 4-6 06/05/16 18:45 06/10/16 18:44 Morphine Sulfate (Morphine Sulfate) 2 mg Q4H PRN IVP severe pain 7-10 06/05/16 18:45 06/12/16 18:44 Nitroglycerin (Ntg) 0.4 mg Q5M X 3 DOSES PRN SL Prn Chest Pain 06/05/16 18:45 07/05/16 18:44 Ondansetron HCl (Zofran) 4 mg Q6H PRN IVP Nausea & Vomiting 06/05/16 18:45 07/05/16 18:44 Piperacillin Sod/ Tazobactam Sod/ Sodium Chloride (Zosyn/Sodium Chloride) 110 ml @ 27.5 mls/hr Q8HR IVPB 06/05/16 22:00 06/12/16 21:59 06/06/16 12:57 Polyethylene Glycol (Miralax) 17 gm HSPRN PRN ORAL Constipation 06/05/16 18:45 07/05/16 18:44 Polyethylene Glycol/ Electrolytes (Nulytely) 4,000 ml ONCE ONCE ORAL 06/06/16 16:00 06/06/16 16:01 Sodium Chloride (Sodium Chloride 1000ml bag) 1,000 ml @ 100 mls/hr Q10H IVLG 06/05/16 19:00 07/05/16 18:59 06/05/16 21:30 Sodium Phosphate (Fleet's Sodium Phosl Enema) 133 ml ONCE ONCE RECTAL 06/06/16 23:00 06/06/16 23:01 Temazepam (Restoril) 15 mg HSPRN PRN ORAL Insomnia 06/05/16 18:45 06/12/16 18:44 Vancomycin HCl 1 ea 1 ea DAILY PRN MISC Per rx protocol 06/05/16 18:45 07/05/16 18:44 Assessment/Plan Problem List: (1) Leukocytosis ICD Codes: D72.829 - Elevated white blood cell count, unspecified SNOMED: 392934475, 517556659 (2) Pyelonephritis ICD Codes: N12 - Tubulo-interstitial nephritis, not specified as acute or chronic SNOMED: 53298171 (3) Hyperglycemia ICD Codes: R73.9 - Hyperglycemia, unspecified SNOMED: 73642629 Assessment/Plan abbott culture IV antibiotics check cultures GI evaluation JANEEN JEFFERSON Jun 06, 2016 14:23
--- NOTE | 2016-06-06 15:18 | Consultation ---
MARICHUY ELIZABETH M.D. Jun 06, 2016 15:18
[2016-06-06] MEDS ORDERED: Nulytely 4L ORAL ONE (16:00)
[2016-06-06] MEDS ORDERED: Bisacodyl EC 5mg tab ORAL ONE (16:00)
[2016-06-06] MEDS ORDERED: Vancomycin 1250mg in D5W 275ml IVPB ONE (16:30)
[2016-06-06] MEDS ORDERED: Tubing IV Secondary IV ONE (16:44)
[2016-06-06] MEDS ORDERED: NS 275ml ONE (16:44)
[2016-06-06] MEDS ORDERED: Nitroglycerin Subl 0.4mg tab (Bottle Of 25) SL PRN (17:15)
[2016-06-06] MEDS ORDERED: Ketorolac 30mg Inj IV PRN (18:45)
[2016-06-06] MEDS ORDERED: Morphine Sulfate 2mg/ml Inj IVP PRN (18:45)
[2016-06-06] MEDS ORDERED: DuoNeb 0.5-3(2.5)mg/3ml neb HHN PRN (18:45)
[2016-06-06] MEDS ORDERED: Miralax 17gm pkt ORAL PRN (18:45)
[2016-06-06] MEDS ORDERED: Mylanta II UD 30ml ORAL PRN (19:00)
[2016-06-06] MEDS ORDERED: Famotidine 20 MG/ 2ML VIAL IVP SCH (21:00)
[2016-06-06] MEDS ORDERED: Fleet's Enema 133ml RECTAL ONE (23:00)
--- NOTE | 2016-06-07 00:08 | Consultation ---
DATE OF CONSULTATION: INFECTIOUS DISEASES CONSULTATION CONSULTING PHYSICIAN: Mikael Kwok M.D REFERRING PHYSICIAN: Roberto Ruff M.D. REASON FOR CONSULTATION: Evaluation of the patient with history of possible intra-abdominal sepsis, antibiotic management. HISTORY OF PRESENT ILLNESS: The patient is a 55-year-old female with multiple medical problems, who has been admitted to this medical center for abdominal pain x1 day. Also, the patient has history of dysuria. Yesterday, she had a bowel movement. Also saw some blood mixed with stool. GI consultation has been requested and the patient has been started on IV Zosyn. Infectious diseases consultation has been requested for further evaluation of patient's antibiotic management. PAST MEDICAL HISTORY: 1. Obesity. 2. Hypertension. 3. Diabetes. ALLERGIES: No known drug allergies. MEDICATIONS: Zosyn. SOCIAL HISTORY: FAMILY HISTORY: Noncontributory. REVIEW OF SYSTEMS: A 10-point review was done and except what is mentioned has been negative. PHYSICAL EXAMINATION: VITAL SIGNS: Temperature 97, blood pressure 148/80, pulse 74, and respiratory rate 18. HEENT: Mild pale conjunctiva. No icterus. NECK: No lymphadenopathy. CHEST: Coarse breathing sounds. HEART: S1 and S2. ABDOMEN: Soft. The patient has right lower quadrant tenderness with mild to moderate rebound. EXTREMITIES: No cyanosis. NEUROLOGIC: Awake and alert. LABORATORY AND DIAGNOSTIC DATA: White blood cells 18.9, hemoglobin 14, and platelets 181,000. UA is unremarkable. BUN 16 and creatinine 0.9. ALT, AST, and alkaline phosphatase within normal range. Urine culture is growing gram-negative rods. CT scan of the abdomen, apparent wall thickening of the sigmoid colon and rectum. No evidence of acute abdomen or pelvic disease. Hepatic steatosis. Chest x-ray is unremarkable. ASSESSMENT: The patient is a 55-year-old female, who came to the hospital with lower abdominal pain. The patient's UA shows significant leukocyte esterase. It is important to rule out the possibility of renal stone, also appendicitis or diverticulitis or abscess formation. The patient will benefit with the CT scan with oral and intravenous contrast and also CT without contrast for further management and evaluation. PLAN: 1. We will continue the patient on IV Zosyn. 2. Monitor cultures, blood and urine. 3. Monitor CBC. 4. Monitor BMP. 5. CT scan of the abdomen without and with contrast. 6. Based on patient's clinical course and laboratories, we will do further recommendation. Thank you, Dr. Ruff, for allowing me to participate in the care of this patient. I will follow the patient with you during this hospitalization. Mikael Kwok M.D. DR: ANA JOB#: [id number] CC:
[2016-06-07 00:24] VITALS: BP 131/73
[2016-06-07] MEDS: Vancomycin 1 GM in D5W 275 ML IVPB SCH ×2 (03:29→16:26)
[2016-06-07 04:00] VITALS: BP 132/76
[2016-06-07] MEDS ORDERED: Vancomycin 1gm in D5W 275ml IVPB SCH (04:00)
[2016-06-07] MEDS: Piperacillin/Tazobactam 3.375 GM in NS 110 ML IVPB SCH ×3 (05:58→20:58)
[2016-06-07] MEDS: NovoLOG Insulin Flexpen SUBQ SCH ×5 (06:30→20:57)
[2016-06-07 07:39] LABS: EOSINOPHILS % (AUTO) 0.9 % (0.0-3.0); LYMPHOCYTES % (AUTO) 16.8 % (20.0-45.0); MEAN CORPUSCULAR HEMOGLOBIN 30.2 PG (27.0-31.0); MEAN CORPUSCULAR HGB CONC 33.8 G/DL (32.0-36.0); MEAN CORPUSCULAR VOLUME 89 FL (80-99); MEAN PLATELET VOLUME 10.5 FL (6.5-10.1); MONOCYTES % (AUTO) 4.3 % (1.0-10.0); PLATELET COUNT 164 K/UL (150-450); RED BLOOD COUNT 4.28 M/UL (4.20-5.40); RED CELL DISTRIBUTION WIDTH 11.2 % (11.6-14.8); WHITE BLOOD COUNT 13.1 K/UL (4.8-10.8)
[2016-06-07 07:42] LABS: PROTHROMBIN TIME 10.5 SEC (9.30-11.50)
[2016-06-07 08:00] VITALS: BP 131/77
[2016-06-07 08:06] LABS: ANION GAP 18 (5-15); CALCIUM 8.6 mg/dL (8.6-10.2); CARBON DIOXIDE 21 mEQ/L (20-30); CHLORIDE 100 mEQ/L (98-107); CREATININE 0.6 mg/dL (0.5-0.9); GLOMERULAR FILTRATION RATE > 60 mL/min (>60); HEMOLYSIS 3; POTASSIUM 3.9 mEQ/L (3.4-4.9); SODIUM 139 mEQ/L (135-145)
--- NOTE | 2016-06-07 08:53 | Diagnostic Imaging Report ---
Indication: Lower quadrant flank pain, abdominal distention Technique: Patient ingested a limited amount of oral contrast. IV administration nonionic contrast . Pre-and postcontrast spiral acquisitions obtained through the abdomen and pelvis Multiplanar reconstructions were generated. Total dose length product 2181 mGycm. CTDIvol(s) 19x2 mGy. Radiation dose was minimized using automated exposure control Comparison: 06/05/2016 Findings: Precontrast images demonstrate no evidence of renal or ureteral calculi. No hydronephrosis or hydroureter. Normal renal parenchymal enhancement. There is a subcentimeter low-attenuation lesion in the interpolar region of the right kidney again demonstrated which is too small to characterize. Again demonstrated is wall thickening of the distal descending and sigmoid colon and rectum. This appears more prominent previously. There is increased infiltration of the pericolonic fat. No extraluminal gas demonstrated. No evidence of diverticulosis. The appendix is unremarkable. No small bowel distention or small bowel wall thickening. Distal esophagus, stomach, duodenum are unremarkable. There is trace free pelvic fluid again demonstrated The liver is mildly hypoattenuating, consistent with fatty change. No focal abnormality. Gallbladder is unremarkable. The pancreas is atrophic. The spleen, adrenals are unremarkable. No mesenteric or retroperitoneal mass or adenopathy. Normal uterus and ovaries. No pelvic mass or adenopathy. The heart is upper limits normal in size. The lung bases are clear. There are mild degenerative proliferative changes of the lumbar spine. Impression: Wall thickening and pericolonic inflammation involving the distal descending, sigmoid colon, and rectum. This is increased from the previous days exam, and is consistent with proctocolitis, nonspecific as regards etiology. No evidence of urinary stone disease or obstructive uropathy. Subcentimeter low-attenuation right renal lesion, too small to characterize, most likely benign simple cortical cyst. No further followup necessary. Diffusely mildly hypoattenuating liver, consistent with mild fatty change Atrophic pancreas This agrees with the preliminary interpretation provided overnight by Dr. Wright The CT scanner at [facility] is accredited by the [place] [employer] and the scans are performed using protocols designed to limit radiation exposure to as low as reasonably achievable to attain images of sufficient resolution adequate for diagnostic evaluation.
--- NOTE | 2016-06-07 10:16 | Infectious Diseases Prog Note ---
Assessment/Plan Assessment/Plan A: The patient is a 55-year-old female with Leukkocytosis : improving Colitis: CT scan of the abdomen : Wall thickening and pericolonic inflammation involving the distal descending, sigmoid colon, and rectum. This is increased from the previous days exam, and is consistent with proctocolitis, nonspecific as regards etiology. No evidence of urinary stone disease or obstructive uropathy. Probable UTI Urine culture: GNR Hx of dysuria Obesity Hypertension Diabetes PLAN: continue the patient on IV Zosyn d# 2 Monitor cultures, blood and urine stool C Diff Monitor CBC. Monitor BMP Gi is following , colonoscopy Subjective Constitutional: Denies: anorexia, chills, drenching sweats, fatigue, fever, no symptoms, other Allergies: Coded Allergies: No Known Allergies (Unverified , 06/05/16) Objective Vital Signs Last 24 Hour Vital Signs Date Time Temp Pulse Resp B/P Pulse Ox O2 Delivery O2 Flow Rate FiO2 06/07/16 08:00 97.7 67 18 131/77 96 Room Air 06/07/16 04:00 98.1 76 20 132/76 96 Room Air 06/07/16 00:24 97.9 74 19 131/73 96 Room Air 06/06/16 20:57 99.0 75 18 132/75 96 Room Air 06/06/16 19:30 89 18 Room Air 06/06/16 15:30 98.1 90 18 134/80 97 Room Air 06/06/16 11:37 97.0 74 18 148/80 99 Room Air Height (Feet): 5 Height (Inches): 3.00 Weight (Pounds): 230 HEENT: anicteric Respiratory/Chest: normal breath sounds Cardiovascular: normal rate Abdomen: non distended Microbiology Date/Time Source Procedure Growth Status 06/05/16 14:30 Urine,Clean Catch Urine Culture - Preliminary Gram Negative Bacillus 1 Resulted Laboratory Tests Test 06/06/16 17:00 06/07/16 06:05 Stool Occult Blood Pending White Blood Count 13.1 K/UL (4.8-10.8) H Red Blood Count 4.28 M/UL (4.20-5.40) Hemoglobin 12.9 G/DL (12.0-16.0) Hematocrit 38.2 % (37.0-47.0) Mean Corpuscular Volume 89 FL (80-99) Mean Corpuscular Hemoglobin 30.2 PG (27.0-31.0) Mean Corpuscular Hemoglobin Concent 33.8 G/DL (32.0-36.0) Red Cell Distribution Width 11.2 % (11.6-14.8) L Platelet Count 164 K/UL (150-450) Mean Platelet Volume 10.5 FL (6.5-10.1) H Neutrophils (%) (Auto) 77.0 % (45.0-75.0) H Lymphocytes (%) (Auto) 16.8 % (20.0-45.0) L Monocytes (%) (Auto) 4.3 % (1.0-10.0) Eosinophils (%) (Auto) 0.9 % (0.0-3.0) Basophils (%) (Auto) 1.0 % (0.0-2.0) Prothrombin Time 10.5 SEC (9.30-11.50) Prothromb Time International Ratio 1.0 (0.9-1.1) Activated Partial Thromboplast Time 26 SEC (23-33) Sodium Level 139 mEQ/L (135-145) Potassium Level 3.9 mEQ/L (3.4-4.9) Chloride Level 100 mEQ/L (98-107) Carbon Dioxide Level 21 mEQ/L (20-30) Anion Gap 18 (5-15) H Blood Urea Nitrogen 10 mg/dL (7-23) Creatinine 0.6 mg/dL (0.5-0.9) Estimat Glomerular Filtration Rate > 60 mL/min (>60) Glucose Level 291 mg/dL (74-106) H Calcium Level 8.6 mg/dL (8.6-10.2) Carcinoembryonic Antigen 2.9 ng/mL Current Medications Medications (Trade) Dose Ordered Sig/Carlo Route PRN Reason Start Time Stop Time Status Last Admin Dose Admin Acetaminophen (Tylenol) 650 mg Q4H PRN ORAL T>100.5 06/06/16 18:45 07/06/16 18:44 Al Hydroxide/Mg Hydroxide (Mylanta II) 30 ml Q6H PRN ORAL dyspepsia 06/06/16 19:00 07/06/16 18:59 Albuterol/ Ipratropium (DuoNeb 0.5-3(2.5)mg/3ml) 3 ml Q4H PRN HHN Shortness of Breath 06/06/16 18:45 06/11/16 18:44 Clonidine HCl (Catapres) 0.1 mg Q4H PRN ORAL sbp more than 160 06/06/16 18:45 07/06/16 18:44 Dextrose (Dextrose 50%) STAT PRN IV Hypoglycemia 06/06/16 18:45 07/06/16 18:44 Insulin Aspart (NovoLOG) BEFORE MEALS AND HS SUBQ 06/06/16 21:00 07/06/16 20:59 06/07/16 07:31 Ketorolac Tromethamine (Toradol 30mg) 30 mg Q6H PRN IV moderate pain 4-6 06/06/16 18:45 06/11/16 18:44 Morphine Sulfate (Morphine Sulfate) 2 mg Q4H PRN IVP severe pain 7-10 06/06/16 18:45 06/13/16 18:44 Nitroglycerin (Ntg) 0.4 mg Q5M X 3 DOSES PRN SL Prn Chest Pain 06/06/16 17:15 07/06/16 17:14 Ondansetron HCl (Zofran) 4 mg Q6H PRN IVP Nausea & Vomiting 06/06/16 18:45 07/06/16 18:44 Piperacillin Sod/ Tazobactam Sod 3.375 gm/Sodium Chloride 110 ml @ 27.5 mls/hr Q8HR IVPB 06/06/16 22:00 06/13/16 21:59 06/07/16 05:58 Polyethylene Glycol (Miralax) 17 gm HSPRN PRN ORAL Constipation 06/06/16 18:45 07/06/16 18:44 Sodium Chloride 1,000 ml @ 100 mls/hr Q10H IVLG 06/06/16 18:00 07/06/16 17:59 06/07/16 03:30 Temazepam (Restoril) 15 mg HSPRN PRN ORAL Insomnia 06/06/16 21:00 06/13/16 20:59 Vancomycin HCl (Vanco rx to dose) 1 ea DAILY PRN MISC Per rx protocol 06/06/16 19:00 07/06/16 18:59 Vancomycin HCl/ Dextrose (Vancomycin/D5W) 275 ml @ 183.708 mls/hr Q12H IVPB 06/07/16 04:00 06/12/16 03:59 06/07/16 03:29 MARICHUY ELIZABETH M.D. Jun 07, 2016 10:16
--- NOTE | 2016-06-07 11:12 | GI Progress Note ---
Assessment/Plan Problems: (1) Colonoscopy planned SNOMED: 044220712 (2) Colon wall thickening ICD Codes: K63.9 - Disease of intestine, unspecified SNOMED: 005424578 (3) Bloody stools ICD Codes: K92.1 - Melena SNOMED: 719963093 (4) Abdominal pain ICD Codes: R10.9 - Unspecified abdominal pain SNOMED: 48540163 (5) Leukocytosis ICD Codes: D72.829 - Elevated white blood cell count, unspecified SNOMED: 258491460, 158586887 Status: unchanged Status Narrative Discussed with Dr. Bailon. Assessment/Plan APCT reviewed >> mural thickening of sigmoid colon and rectum, see full report. Pt scheduled for colonoscopy tomorrow. - CLD, NPO @ MS. - hold all blood thinners monitor H&H, transfuse prn abx H2 fu labs Subjective Gastrointestinal/Abdominal: Reports: abdominal pain, rectal bleeding Objective Last 24 Hour Vital Signs Date Time Temp Pulse Resp B/P Pulse Ox O2 Delivery O2 Flow Rate FiO2 06/07/16 08:00 97.7 67 18 131/77 96 Room Air 06/07/16 04:00 98.1 76 20 132/76 96 Room Air 06/07/16 00:24 97.9 74 19 131/73 96 Room Air 06/06/16 20:57 99.0 75 18 132/75 96 Room Air 06/06/16 19:30 89 18 Room Air 06/06/16 15:30 98.1 90 18 134/80 97 Room Air 06/06/16 11:37 97.0 74 18 148/80 99 Room Air Intake and Output 06/06/16 06/07/16 19:00 07:00 Intake Total 626.208 ml 127.5 ml Output Total 350 ml Balance 276.208 ml 127.5 ml Intake Oral 360 ml IV Total 266.208 ml 127.5 ml Output Urine Total 350 ml # Voids 3 5 Laboratory Tests Test 06/06/16 17:00 06/07/16 06:05 Stool Occult Blood Pending White Blood Count 13.1 K/UL (4.8-10.8) H Red Blood Count 4.28 M/UL (4.20-5.40) Hemoglobin 12.9 G/DL (12.0-16.0) Hematocrit 38.2 % (37.0-47.0) Mean Corpuscular Volume 89 FL (80-99) Mean Corpuscular Hemoglobin 30.2 PG (27.0-31.0) Mean Corpuscular Hemoglobin Concent 33.8 G/DL (32.0-36.0) Red Cell Distribution Width 11.2 % (11.6-14.8) L Platelet Count 164 K/UL (150-450) Mean Platelet Volume 10.5 FL (6.5-10.1) H Neutrophils (%) (Auto) 77.0 % (45.0-75.0) H Lymphocytes (%) (Auto) 16.8 % (20.0-45.0) L Monocytes (%) (Auto) 4.3 % (1.0-10.0) Eosinophils (%) (Auto) 0.9 % (0.0-3.0) Basophils (%) (Auto) 1.0 % (0.0-2.0) Prothrombin Time 10.5 SEC (9.30-11.50) Prothromb Time International Ratio 1.0 (0.9-1.1) Activated Partial Thromboplast Time 26 SEC (23-33) Sodium Level 139 mEQ/L (135-145) Potassium Level 3.9 mEQ/L (3.4-4.9) Chloride Level 100 mEQ/L (98-107) Carbon Dioxide Level 21 mEQ/L (20-30) Anion Gap 18 (5-15) H Blood Urea Nitrogen 10 mg/dL (7-23) Creatinine 0.6 mg/dL (0.5-0.9) Estimat Glomerular Filtration Rate > 60 mL/min (>60) Glucose Level 291 mg/dL (74-106) H Calcium Level 8.6 mg/dL (8.6-10.2) Carcinoembryonic Antigen 2.9 ng/mL Height (Feet): 5 Height (Inches): 3.00 Weight (Pounds): 230 General Appearance: no apparent distress, alert, obese Cardiovascular: normal rate Respiratory/Chest: no respiratory distress Abdominal Exam: normal bowel sounds, soft, tender Extremities: normal range of motion Salima Varela N.P. Jun 07, 2016 11:12
[2016-06-07 12:00] VITALS: BP 133/80
[2016-06-07 15:52] VITALS: BP 131/81
[2016-06-07] MEDS ORDERED: Bisacodyl EC 5mg tab ORAL ONE (16:00)
[2016-06-07] MEDS ORDERED: Polyethylene Glycol 238gm bottle ORAL ONE (16:00)
[2016-06-07] MEDS ORDERED: Vancomycin 1.25 GM in D5W 275 ML IVPB ONE (16:30)
--- NOTE | 2016-06-07 16:48 | Pulmonology Progress Note ---
Assessment/Plan Problems: (1) Leukocytosis (2) Pyelonephritis (3) Hyperglycemia Assessment/Plan wbc decreasing continue abx colonoscopy in am Subjective ROS Limited/Unobtainable: No Interval Events: still rectal bleeding Constitutional: Reports: no symptoms HEENT: Repors: no symptoms Allergies: Coded Allergies: No Known Allergies (Unverified , 06/05/16) Objective Last 24 Hour Vital Signs Date Time Temp Pulse Resp B/P Pulse Ox O2 Delivery O2 Flow Rate FiO2 06/07/16 15:52 98.1 80 18 131/81 98 Room Air 06/07/16 12:00 98.3 75 18 133/80 98 Room Air 06/07/16 08:00 97.7 67 18 131/77 96 Room Air 06/07/16 04:00 98.1 76 20 132/76 96 Room Air 06/07/16 00:24 97.9 74 19 131/73 96 Room Air 06/06/16 20:57 99.0 75 18 132/75 96 Room Air 06/06/16 19:30 89 18 Room Air Intake and Output 06/06/16 06/07/16 19:00 07:00 Intake Total 626.208 ml 127.5 ml Output Total 350 ml Balance 276.208 ml 127.5 ml Intake Oral 360 ml IV Total 266.208 ml 127.5 ml Output Urine Total 350 ml # Voids 3 5 General Appearance: WD/WN HEENT: normocephalic, atraumatic Respiratory/Chest: chest wall non-tender, lungs clear Cardiovascular: normal peripheral pulses, normal rate Abdomen: soft, non tender Extremities: no clubbing Skin: no rash, no ulcers 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, no motor/sensory deficits, abnormal gait Lymphatic: no neck adenopathy Microbiology Date/Time Source Procedure Growth Status 06/05/16 14:30 Urine,Clean Catch Urine Culture - Final Escherichia Coli Complete Laboratory Tests 06/06/16 17:00: Stool Occult Blood Positive 06/07/16 06:05: White Blood Count 13.1H, Red Blood Count 4.28, Hemoglobin 12.9, Hematocrit 38.2 , Mean Corpuscular Volume 89, Mean Corpuscular Hemoglobin 30.2, Mean Corpuscular Hemoglobin Concent 33.8, Red Cell Distribution Width 11.2L, Platelet Count 164, Mean Platelet Volume 10.5H, Neutrophils (%) (Auto) 77.0H, Lymphocytes (%) (Auto) 16.8L, Monocytes (%) (Auto) 4.3, Eosinophils (%) (Auto) 0.9, Basophils (%) (Auto) 1.0, Prothrombin Time 10.5, Prothromb Time International Ratio 1.0, Activated Partial Thromboplast Time 26, Sodium Level 139, Potassium Level 3.9, Chloride Level 100, Carbon Dioxide Level 21, Anion Gap 18H, Blood Urea Nitrogen 10, Creatinine 0.6, Estimat Glomerular Filtration Rate > 60, Glucose Level 291H, Calcium Level 8.6, Carcinoembryonic Antigen 2.9 Current Medications Medications (Trade) Dose Ordered Sig/Carlo Route PRN Reason Start Time Stop Time Status Last Admin Dose Admin Acetaminophen (Tylenol) 650 mg Q4H PRN ORAL T>100.5 06/06/16 18:45 07/06/16 18:44 Al Hydroxide/Mg Hydroxide (Mylanta II) 30 ml Q6H PRN ORAL dyspepsia 06/06/16 19:00 07/06/16 18:59 Albuterol/ Ipratropium (DuoNeb 0.5-3(2.5)mg/3ml) 3 ml Q4H PRN HHN Shortness of Breath 06/06/16 18:45 06/11/16 18:44 Clonidine HCl (Catapres) 0.1 mg Q4H PRN ORAL sbp more than 160 06/06/16 18:45 07/06/16 18:44 Dextrose (Dextrose 50%) STAT PRN IV Hypoglycemia 06/06/16 18:45 07/06/16 18:44 Insulin Aspart (NovoLOG) BEFORE MEALS AND HS SUBQ 06/06/16 21:00 07/06/16 20:59 06/07/16 12:36 Morphine Sulfate (Morphine Sulfate) 2 mg Q4H PRN IVP severe pain 7-10 06/06/16 18:45 06/13/16 18:44 Nitroglycerin (Ntg) 0.4 mg Q5M X 3 DOSES PRN SL Prn Chest Pain 06/06/16 17:15 07/06/16 17:14 Ondansetron HCl (Zofran) 4 mg Q6H PRN IVP Nausea & Vomiting 06/06/16 18:45 07/06/16 18:44 Piperacillin Sod/ Tazobactam Sod 3.375 gm/Sodium Chloride 110 ml @ 27.5 mls/hr Q8HR IVPB 06/06/16 22:00 06/13/16 21:59 06/07/16 14:06 Polyethylene Glycol (Miralax) 17 gm HSPRN PRN ORAL Constipation 06/06/16 18:45 07/06/16 18:44 Sodium Chloride 1,000 ml @ 100 mls/hr Q10H IVLG 06/06/16 18:00 07/06/16 17:59 06/07/16 12:34 Sodium Phosphate (Fleet's Sodium Phosl Enema) 133 ml ONCE ONCE RECTAL 06/07/16 23:00 06/07/16 23:01 Temazepam (Restoril) 15 mg HSPRN PRN ORAL Insomnia 06/06/16 21:00 06/13/16 20:59 Vancomycin HCl (Vanco rx to dose) 1 ea DAILY PRN MISC Per rx protocol 06/06/16 19:00 07/06/16 18:59 Vancomycin HCl/ Dextrose (Vancomycin/D5W) 275 ml @ 183.708 mls/hr Q12H IVPB 06/07/16 04:00 06/12/16 03:59 06/07/16 16:26 JANEEN JEFFERSON Jun 07, 2016 16:48
[2016-06-07 20:00] VITALS: BP 140/82
[2016-06-07] MEDS ORDERED: Fleet's Enema 133ml RECTAL ONE (23:00)
[2016-06-08] VITALS (8 sets, daily range): BP systolic 131–157; BP diastolic 76–90
[2016-06-08] MEDS: Vancomycin 1 GM in D5W 275 ML IVPB SCH (04:38)
[2016-06-08] MEDS: Piperacillin/Tazobactam 3.375 GM in NS 110 ML IVPB SCH (06:23)
[2016-06-08] MEDS: NovoLOG Insulin Flexpen SUBQ SCH ×2 (06:30→12:07)
--- NOTE | 2016-06-08 07:18 | Pre-Procedure Note/Attestation ---
Pre-Procedure Note/Attestation Complete Prior to Procedure Planned Procedure: not applicable Procedure Narrative: egd/colon Indications for Procedure Pre-Operative Diagnosis: gib, abd pain Attestation I attest that I discussed the nature of the procedure; its benefits; risks and complications; and alternatives (and the risks and benefits of such alternatives ), prior to the procedure, with the patient (or the patient's legal media sales representative). I attest that, if there was a reasonable possibility of needing a blood transfusion, the patient (or the patient's legal media sales representative) was given the [facility] standardized written summary, pursuant to the [place]ey Blood Safety Act ([place] Health and Safety Code # 1645, as amended). I attest that I re-evaluated the patient just prior to the surgery and that there has been no change in the patient's H&P, except as documented below: RAMSEY PATEL Jun 08, 2016 07:18
[2016-06-08 07:23] LABS: BASOPHILS % (AUTO) 1.4 % (0.0-2.0); EOSINOPHILS % (AUTO) 2.6 % (0.0-3.0); LYMPHOCYTES % (AUTO) 27.1 % (20.0-45.0); MEAN CORPUSCULAR HEMOGLOBIN 30.3 PG (27.0-31.0); MEAN CORPUSCULAR HGB CONC 34.2 G/DL (32.0-36.0); MEAN CORPUSCULAR VOLUME 89 FL (80-99); MEAN PLATELET VOLUME 10.7 FL (6.5-10.1); MONOCYTES % (AUTO) 5.9 % (1.0-10.0); PLATELET COUNT 149 K/UL (150-450); RED BLOOD COUNT 3.77 M/UL (4.20-5.40); RED CELL DISTRIBUTION WIDTH 10.9 % (11.6-14.8)
[2016-06-08] MEDS ORDERED: Propofol 10mg/ml 20ml IV ONE (07:30)
[2016-06-08] MEDS ORDERED: NS 550ML IV ONE (07:40)
[2016-06-08 07:46] LABS: ALANINE AMINOTRANSFERASE 12 U/L (3-33); ALBUMIN/GLOBULIN RATIO 1.2 (1.0-2.7); ANION GAP 16 (5-15); ASPARTATE AMINO TRANSFERASE 14 U/L (5-40); CALCIUM 8.4 mg/dL (8.6-10.2); CARBON DIOXIDE 22 mEQ/L (20-30); CHLORIDE 104 mEQ/L (98-107); CREATININE 0.6 mg/dL (0.5-0.9); GLOMERULAR FILTRATION RATE > 60 mL/min (>60); HEMOLYSIS 0; POTASSIUM 3.5 mEQ/L (3.4-4.9); SODIUM 142 mEQ/L (135-145); TOTAL PROTEIN 5.5 g/dL (6.6-8.7)
[2016-06-08 07:48] LABS: PROTHROMBIN TIME 10.4 SEC (9.30-11.50)
--- NOTE | 2016-06-08 08:01 | Anethesia Preoperative Eval ---
Anesthesia Pre-op PMH/ROS General Date of Evaluation: Jun 08, 2016 Time of Evaluation: 07:36 Anesthesiologist: severino ASA Score: ASA 3 Mallampati Score Class I : Soft palate, uvula, fauces, pillars visible Class II: Soft palate, uvula, fauces visible Class III: Soft palate, base of uvula visible Class IV: Only hard plate visible Mallampati Classification: Class II Surgeon: radha Diagnosis: anemia Surgical Procedure: egd/colonoscopy Anesthesia History: none Allergies: Coded Allergies: No Known Allergies (Unverified , 06/05/16) Past Medical History Cardiovascular: Reports: HTN Endocrine: Reports: DM Anesthesia Pre-op Phys. Exam Physician Exam Last Vital Signs Date Time Temp Pulse Resp B/P Pulse Ox O2 Delivery O2 Flow Rate FiO2 06/08/16 04:00 97.0 70 20 143/76 95 Room Air Airway Exam Mallampati Score: Class II Teeth: missing Anesthesia Pre-op A/P Labs Hematology Test 06/08/16 05:30 06/08/16 05:50 Erythrocyte Sedimentation Rate Pending White Blood Count 7.0 K/UL (4.8-10.8) Red Blood Count 3.77 M/UL (4.20-5.40) L Hemoglobin 11.5 G/DL (12.0-16.0) L Hematocrit 33.5 % (37.0-47.0) L Mean Corpuscular Volume 89 FL (80-99) Mean Corpuscular Hemoglobin 30.3 PG (27.0-31.0) Mean Corpuscular Hemoglobin Concent 34.2 G/DL (32.0-36.0) Red Cell Distribution Width 10.9 % (11.6-14.8) L Platelet Count 149 K/UL (150-450) L Mean Platelet Volume 10.7 FL (6.5-10.1) H Neutrophils (%) (Auto) 63.0 % (45.0-75.0) Lymphocytes (%) (Auto) 27.1 % (20.0-45.0) Monocytes (%) (Auto) 5.9 % (1.0-10.0) Eosinophils (%) (Auto) 2.6 % (0.0-3.0) Basophils (%) (Auto) 1.4 % (0.0-2.0) Coagulation Test 06/08/16 05:30 Prothrombin Time 10.4 SEC (9.30-11.50) Prothromb Time International Ratio 1.0 (0.9-1.1) Activated Partial Thromboplast Time 27 SEC (23-33) Chemistry Test 06/08/16 05:30 Sodium Level 142 mEQ/L (135-145) Potassium Level 3.5 mEQ/L (3.4-4.9) Chloride Level 104 mEQ/L (98-107) Carbon Dioxide Level 22 mEQ/L (20-30) Anion Gap 16 (5-15) H Blood Urea Nitrogen 7 mg/dL (7-23) Creatinine 0.6 mg/dL (0.5-0.9) Estimat Glomerular Filtration Rate > 60 mL/min (>60) Glucose Level 241 mg/dL (74-106) H Calcium Level 8.4 mg/dL (8.6-10.2) L Phosphorus Level Pending Magnesium Level Pending Total Bilirubin 0.3 mg/dL (0.0-1.2) Aspartate Amino Transf (AST/SGOT) 14 U/L (5-40) Alanine Aminotransferase (ALT/SGPT) 12 U/L (3-33) Alkaline Phosphatase 61 U/L (35-104) C-Reactive Protein, Quantitative Pending Total Protein 5.5 g/dL (6.6-8.7) L Albumin 3.1 g/dL (3.5-5.2) L Globulin 2.4 g/dL Albumin/Globulin Ratio 1.2 (1.0-2.7) Risk Assessment & Plan Plan: [ropofol Status Change Before Surgery: Guzman Araiza MD Jun 08, 2016 08:01
[2016-06-08 08:02] LABS: CRP QUANT 2.3 mg/dL (< 0.5); MAGNESIUM 1.5 mg/dL (1.7-2.5); PHOSPHORUS 3.8 mg/dL (2.5-4.8)
--- NOTE | 2016-06-08 08:02 | Endoscopy Procedure Note ---
Endoscopy Procedure Note Indication for Procedure: stool ob positive Procedures Performed: EGD, colonoscopy Operative Findings/Diagnosis: gastritis, ischemic colitis Specimen: yes Pt Tolerated Procedure Well: Yes Estimated Blood Loss: none Anesthesiologist: severino Anesthesia: MAC Implant(s) used?: No 50 yrs or older w/o bx or poly: Not Applicable 10yrs. F/U not recommended: Not Applicable RAMSEY PATEL Jun 08, 2016 08:02
--- NOTE | 2016-06-08 08:02 | Immediate Post-Op Evaluation ---
Immediate Post-Op Evalulation Immediate Post-Op Evalulation Date of Evaluation: Jun 08, 2016 Pain Score (1-10): 0 Nausea: No Vomiting: No Complications none Patient Status: awake, patent, none Hydration Status: adequate Guzman Lozano MD Jun 08, 2016 08:02
--- NOTE | 2016-06-08 08:05 | 48 Hour Post Anesthesia Eval ---
Post Anesthesia Evaluation Date of Evaluation: Jun 08, 2016 Time of Evaluation: 08:50 Blood Pressure Systolic: 139 0: 79 Pulse Rate: 71 Respiratory Rate: 18 Temperature (Fahrenheit): 98.3 O2 Sat by Pulse Oximetry: 98 Airway: patent Nausea: No Vomiting: No Pain Intensity: 0 Hydration Status: adequate Cardiopulmonary Status: stable Mental Status/LOC: patient returned to baseline Follow-up Care/Observations: n/a Post-Anesthesia Complications: tolerated well Follow-up care needed: N/A Guzman Lozano MD Jun 08, 2016 08:05
--- NOTE | 2016-06-08 08:19 | Immediate Post-Op Evaluation ---
Immediate Post-Op Evalulation Immediate Post-Op Evalulation Date of Evaluation: Jun 08, 2016 Time of Evaluation: 08:21 IV Fluids: 400 Blood Pressure Systolic: 156 Blood Pressure Diastolic: 90 Pulse Rate: 76 Respiratory Rate: 21 O2 Sat by Pulse Oximetry: 98 Temperature (Fahrenheit): 98.3 Pain Score (1-10): 0 Nausea: No Vomiting: No Complications none Patient Status: awake, patent, none Hydration Status: adequate Guzman Lozano MD Jun 08, 2016 08:19
--- NOTE | 2016-06-08 09:19 | Pulmonology Progress Note ---
Assessment/Plan Assessment/Plan ASSESSMENT pyelonephritis/E coli hyperglycemia DM OOC abdominal pain melena possible proctocolitis hypomagnesemia morbid obesity s/p colonoscopy , EGD 06/08 gastritis possible ischemic colitis PLAN OF CARE MS floor IVF abx urine cx + E coli ID follows CT A/P with sigmoid colon and rectum mural thickening, c/w proctocolitis GI follows s/p EGD and colonoscopy, with findings of gastritis and ischemic colitis pain management monitor BS management with SS of insulin, HgA1c -11.2 not at goal replace Mg dc today on oral abx as per ID recommendation to complete the course discussed with dr Bailon (GI), ok to dc on Flagyl awaiting results of biopsy, likely ischemic colitis as per GI case discussed and evaluated by supervising physician Subjective Allergies: Coded Allergies: No Known Allergies (Unverified , 06/05/16) Subjective leukocytosis resolved, afebrile, no further abdominal or flank pain Mg-1.5 Objective Last 24 Hour Vital Signs Date Time Temp Pulse Resp B/P Pulse Ox O2 Delivery O2 Flow Rate FiO2 06/08/16 09:09 71 18 98 06/08/16 08:46 98.3 71 18 139/79 98 Room Air 06/08/16 08:36 70 17 138/80 98 Room Air 06/08/16 08:26 69 16 142/80 99 Nasal Cannula 2.0 06/08/16 08:21 73 16 157/87 99 Nasal Cannula 2.0 06/08/16 08:19 76 21 98 06/08/16 08:16 98.3 71 15 150/90 99 Nasal Cannula 2.0 06/08/16 04:00 97.0 70 20 143/76 95 Room Air 06/08/16 00:00 97.8 75 20 131/77 97 Room Air 06/07/16 20:00 97.6 75 19 140/82 96 Room Air 06/07/16 19:38 73 18 Room Air 06/07/16 15:52 98.1 80 18 131/81 98 Room Air 06/07/16 12:00 98.3 75 18 133/80 98 Room Air Intake and Output 06/07/16 06/08/16 19:00 07:00 Intake Total 1539.916 ml 1167.500 ml Balance 1539.916 ml 1167.500 ml Intake Oral 680 ml 360 ml IV Total 859.916 ml 807.500 ml # Voids 4 4 # Bowel Movements 5 General Appearance: WD/WN, no acute distress, other - morbidly obese female in NAD HEENT: normocephalic, atraumatic, anicteric, mucous membranes moist, PERRL Respiratory/Chest: lungs clear, no respiratory distress, no accessory muscle use Cardiovascular: normal rate, regular rhythm, no JVD, other - distant heart sounds Abdomen: normal bowel sounds, soft, non tender - obese, other - no CVAT Genitourinary: normal external genitalia Extremities: no edema, pedal pulses normal 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, no motor/sensory deficits, alert, oriented x 3, responsive Musculoskeletal: normal muscle bulk Microbiology Date/Time Source Procedure Growth Status 06/05/16 14:30 Urine,Clean Catch Urine Culture - Final Escherichia Coli Complete Laboratory Tests 06/08/16 05:30: Erythrocyte Sedimentation Rate 42H, Prothrombin Time 10.4, Prothromb Time International Ratio 1.0, Activated Partial Thromboplast Time 27, Sodium Level 142, Potassium Level 3.5, Chloride Level 104, Carbon Dioxide Level 22, Anion Gap 16H, Blood Urea Nitrogen 7, Creatinine 0.6, Estimat Glomerular Filtration Rate > 60, Glucose Level 241H, Calcium Level 8.4L, Phosphorus Level 3.8, Magnesium Level 1.5L, Total Bilirubin 0.3, Aspartate Amino Transf (AST/SGOT) 14 , Alanine Aminotransferase (ALT/SGPT) 12, Alkaline Phosphatase 61, C-Reactive Protein, Quantitative 2.3H, Total Protein 5.5L, Albumin 3.1L, Globulin 2.4, Albumin/Globulin Ratio 1.2 06/08/16 05:50: White Blood Count 7.0, Red Blood Count 3.77L, Hemoglobin 11.5L, Hematocrit 33.5L , Mean Corpuscular Volume 89, Mean Corpuscular Hemoglobin 30.3, Mean Corpuscular Hemoglobin Concent 34.2, Red Cell Distribution Width 10.9L, Platelet Count 149L, Mean Platelet Volume 10.7H, Neutrophils (%) (Auto) 63.0, Lymphocytes (%) (Auto) 27.1, Monocytes (%) (Auto) 5.9, Eosinophils (%) (Auto) 2.6, Basophils (%) (Auto) 1.4 Current Medications Medications (Trade) Dose Ordered Sig/Carlo Route PRN Reason Start Time Stop Time Status Last Admin Dose Admin Acetaminophen (Tylenol) 650 mg Q4H PRN ORAL T>100.5 06/06/16 18:45 07/06/16 18:44 Al Hydroxide/Mg Hydroxide (Mylanta II) 30 ml Q6H PRN ORAL dyspepsia 06/06/16 19:00 07/06/16 18:59 Albuterol/ Ipratropium (DuoNeb 0.5-3(2.5)mg/3ml) 3 ml Q4H PRN HHN Shortness of Breath 06/06/16 18:45 06/11/16 18:44 Clonidine HCl (Catapres) 0.1 mg Q4H PRN ORAL sbp more than 160 06/06/16 18:45 07/06/16 18:44 Dextrose (Dextrose 50%) STAT PRN IV Hypoglycemia 06/06/16 18:45 07/06/16 18:44 Insulin Aspart (NovoLOG) BEFORE MEALS AND HS SUBQ 06/06/16 21:00 07/06/16 20:59 06/07/16 20:57 Morphine Sulfate (Morphine Sulfate) 2 mg Q4H PRN IVP severe pain 7-10 06/06/16 18:45 06/13/16 18:44 Nitroglycerin (Ntg) 0.4 mg Q5M X 3 DOSES PRN SL Prn Chest Pain 06/06/16 17:15 07/06/16 17:14 Ondansetron HCl (Zofran) 4 mg Q6H PRN IVP Nausea & Vomiting 06/06/16 18:45 07/06/16 18:44 Piperacillin Sod/ Tazobactam Sod 3.375 gm/Sodium Chloride 110 ml @ 27.5 mls/hr Q8HR IVPB 06/06/16 22:00 06/13/16 21:59 06/08/16 06:23 Polyethylene Glycol (Miralax) 17 gm HSPRN PRN ORAL Constipation 06/06/16 18:45 07/06/16 18:44 Sodium Chloride 1,000 ml @ 100 mls/hr Q10H IVLG 06/06/16 18:00 07/06/16 17:59 06/08/16 00:00 Sodium Chloride (Sodium Chloride 1000ml bag) 1,000 ml @ 10 mls/hr Q24H IVLG 06/08/16 08:02 06/08/16 10:01 Temazepam (Restoril) 15 mg HSPRN PRN ORAL Insomnia 06/06/16 21:00 06/13/16 20:59 Vancomycin HCl 1 ea 1 ea DAILY PRN MISC Per rx protocol 06/06/16 19:00 07/06/16 18:59 Vancomycin HCl/ Dextrose (Vancomycin/D5W) 275 ml @ 183.708 mls/hr Q12H IVPB 06/07/16 04:00 06/12/16 03:59 06/08/16 04:38 July Ortega NP (Vanchtein) Jun 08, 2016 09:19
--- NOTE | 2016-06-08 13:11 | Infectious Diseases Prog Note ---
Assessment/Plan Assessment/Plan A: The patient is a 55-year-old female with Leukocytosis :SP Colitis: ischemic colitis , colonoscopy CT scan of the abdomen : Wall thickening and pericolonic inflammation involving the distal descending, sigmoid colon, and rectum. This is increased from the previous days exam, and is consistent with proctocolitis, nonspecific as regards etiology. SP EGD : gastritis, Probable UTI Urine culture: Ecoli Hx of dysuria Obesity Hypertension Diabetes PLAN: continue the patient on IV Zosyn d# 2 / 7 , change to Flagyl and Cipro upon DC ( Rx in chart ) Monitor cultures, blood and urine stool C Diff Monitor CBC Monitor BMP Subjective Constitutional: Denies: anorexia, chills, drenching sweats, fatigue, fever, no symptoms, other Allergies: Coded Allergies: No Known Allergies (Unverified , 06/05/16) Objective Vital Signs Last 24 Hour Vital Signs Date Time Temp Pulse Resp B/P Pulse Ox O2 Delivery O2 Flow Rate FiO2 06/08/16 09:09 71 18 98 06/08/16 08:46 98.3 71 18 139/79 98 Room Air 06/08/16 08:36 70 17 138/80 98 Room Air 06/08/16 08:26 69 16 142/80 99 Nasal Cannula 2.0 06/08/16 08:21 73 16 157/87 99 Nasal Cannula 2.0 06/08/16 08:19 76 21 98 06/08/16 08:16 98.3 71 15 150/90 99 Nasal Cannula 2.0 06/08/16 07:03 71 18 Room Air 06/08/16 04:00 97.0 70 20 143/76 95 Room Air 06/08/16 00:00 97.8 75 20 131/77 97 Room Air 06/07/16 20:00 97.6 75 19 140/82 96 Room Air 06/07/16 19:38 73 18 Room Air 06/07/16 15:52 98.1 80 18 131/81 98 Room Air Height (Feet): 5 Height (Inches): 3.00 Weight (Pounds): 230 HEENT: mucous membranes moist Respiratory/Chest: no accessory muscle use Cardiovascular: no gallop/murmur Abdomen: non distended Microbiology Date/Time Source Procedure Growth Status 06/05/16 14:30 Urine,Clean Catch Urine Culture - Final Escherichia Coli Complete Laboratory Tests Test 06/08/16 05:30 06/08/16 05:50 Erythrocyte Sedimentation Rate 42 MM/HR (0-30) H Prothrombin Time 10.4 SEC (9.30-11.50) Prothromb Time International Ratio 1.0 (0.9-1.1) Activated Partial Thromboplast Time 27 SEC (23-33) Sodium Level 142 mEQ/L (135-145) Potassium Level 3.5 mEQ/L (3.4-4.9) Chloride Level 104 mEQ/L (98-107) Carbon Dioxide Level 22 mEQ/L (20-30) Anion Gap 16 (5-15) H Blood Urea Nitrogen 7 mg/dL (7-23) Creatinine 0.6 mg/dL (0.5-0.9) Estimat Glomerular Filtration Rate > 60 mL/min (>60) Glucose Level 241 mg/dL (74-106) H Calcium Level 8.4 mg/dL (8.6-10.2) L Phosphorus Level 3.8 mg/dL (2.5-4.8) Magnesium Level 1.5 mg/dL (1.7-2.5) L Total Bilirubin 0.3 mg/dL (0.0-1.2) Aspartate Amino Transf (AST/SGOT) 14 U/L (5-40) Alanine Aminotransferase (ALT/SGPT) 12 U/L (3-33) Alkaline Phosphatase 61 U/L (35-104) C-Reactive Protein, Quantitative 2.3 mg/dL (< 0.5) H Total Protein 5.5 g/dL (6.6-8.7) L Albumin 3.1 g/dL (3.5-5.2) L Globulin 2.4 g/dL Albumin/Globulin Ratio 1.2 (1.0-2.7) White Blood Count 7.0 K/UL (4.8-10.8) Red Blood Count 3.77 M/UL (4.20-5.40) L Hemoglobin 11.5 G/DL (12.0-16.0) L Hematocrit 33.5 % (37.0-47.0) L Mean Corpuscular Volume 89 FL (80-99) Mean Corpuscular Hemoglobin 30.3 PG (27.0-31.0) Mean Corpuscular Hemoglobin Concent 34.2 G/DL (32.0-36.0) Red Cell Distribution Width 10.9 % (11.6-14.8) L Platelet Count 149 K/UL (150-450) L Mean Platelet Volume 10.7 FL (6.5-10.1) H Neutrophils (%) (Auto) 63.0 % (45.0-75.0) Lymphocytes (%) (Auto) 27.1 % (20.0-45.0) Monocytes (%) (Auto) 5.9 % (1.0-10.0) Eosinophils (%) (Auto) 2.6 % (0.0-3.0) Basophils (%) (Auto) 1.4 % (0.0-2.0) Current Medications Medications (Trade) Dose Ordered Sig/Carlo Route PRN Reason Start Time Stop Time Status Last Admin Dose Admin Acetaminophen (Tylenol) 650 mg Q4H PRN ORAL T>100.5 06/06/16 18:45 07/06/16 18:44 Al Hydroxide/Mg Hydroxide (Mylanta II) 30 ml Q6H PRN ORAL dyspepsia 06/06/16 19:00 07/06/16 18:59 Albuterol/ Ipratropium (DuoNeb 0.5-3(2.5)mg/3ml) 3 ml Q4H PRN HHN Shortness of Breath 06/06/16 18:45 06/11/16 18:44 Clonidine HCl (Catapres) 0.1 mg Q4H PRN ORAL sbp more than 160 06/06/16 18:45 07/06/16 18:44 Dextrose (Dextrose 50%) STAT PRN IV Hypoglycemia 06/06/16 18:45 07/06/16 18:44 Insulin Aspart (NovoLOG) BEFORE MEALS AND HS SUBQ 06/06/16 21:00 07/06/16 20:59 06/08/16 12:07 Morphine Sulfate (Morphine Sulfate) 2 mg Q4H PRN IVP severe pain 7-10 06/06/16 18:45 06/13/16 18:44 Nitroglycerin (Ntg) 0.4 mg Q5M X 3 DOSES PRN SL Prn Chest Pain 06/06/16 17:15 07/06/16 17:14 Ondansetron HCl (Zofran) 4 mg Q6H PRN IVP Nausea & Vomiting 06/06/16 18:45 07/06/16 18:44 Piperacillin Sod/ Tazobactam Sod 3.375 gm/Sodium Chloride 110 ml @ 27.5 mls/hr Q8HR IVPB 06/06/16 22:00 06/13/16 21:59 06/08/16 06:23 Polyethylene Glycol (Miralax) 17 gm HSPRN PRN ORAL Constipation 06/06/16 18:45 07/06/16 18:44 Sodium Chloride 1,000 ml @ 100 mls/hr Q10H IVLG 06/06/16 18:00 07/06/16 17:59 06/08/16 09:16 Temazepam (Restoril) 15 mg HSPRN PRN ORAL Insomnia 06/06/16 21:00 06/13/16 20:59 Vancomycin HCl (Vanco rx to dose) 1 ea DAILY PRN MISC Per rx protocol 06/06/16 19:00 07/06/16 18:59 Vancomycin HCl/ Dextrose (Vancomycin/D5W) 275 ml @ 183.708 mls/hr Q12H IVPB 06/07/16 04:00 06/12/16 03:59 06/08/16 04:38 MARICHUY ELIZABETH M.D. Jun 08, 2016 13:11
[2016-06-08] MEDS ORDERED: CIPRO500 MG PO (13:19)
[2016-06-08] MEDS ORDERED: METRONIDAZOLE500 MG ORAL (13:19)
[2016-06-08] MEDS ORDERED: NS 275ml ONE (14:59)
[2016-06-08] MEDS ORDERED: Tubing IV Secondary IV ONE (14:59)
--- NOTE | 2016-06-08 17:07 | Procedure Note ---
DATE OF PROCEDURE: 06/08/2016 SURGEON: Simon Bailon M.D. PROCEDURE: Upper endoscopy with biopsy and colonoscopy with biopsy. ANESTHESIOLOGIST: Guzman Lozano M.D. INSTRUMENT: Olympus adult flexible upper endoscope and colonoscope. INDICATION: Stool OB positive and abdominal pain. REASON FOR PROCEDURE: The procedure, risks, benefits, and possible consequences, including hemorrhage, aspiration, perforation and infection, and alternative treatments, were explained to the patient/legal guardian by Dr. Simon Bailon and the patient/legal guardian understood and accepted these risks. DESCRIPTION OF PROCEDURE: After informed consent was obtained and the patient was adequately sedated, Olympus upper endoscope was advanced from mouth into the second portion of duodenum and retroflexion was performed in the stomach. The patient had evidence of diffuse gastritis. Random biopsy from antrum of the stomach was obtained to rule out H. pylori infection. The patient also had evidence of small hiatal hernia without any obvious esophagitis. At this time, the upper endoscope was retrieved and the patient was turned over for colonoscopy. First, a rectal exam was performed, which was positive for internal hemorrhoids. Then, the scope was advanced from rectum into the cecum documented by appendiceal orifice, ileocecal valve, and right upper quadrant palpation. Quality of the prep was good. The patient had evidence of resolving ischemic colitis in the sigmoid area, which was biopsied. Otherwise the rest of the examination was grossly within normal limits. Retroflexion of rectum showed evidence of internal hemorrhoids. SUMMARY OF FINDINGS: 1. Small hiatal hernia. 2. Gastritis. 3. Resolving ischemic colitis in the sigmoid. 4. Internal hemorrhoids. RECOMMENDATIONS: Follow up biopsy results and treat accordingly. I want to thank, Dr. Ruff, for this kind referral. Simon Bailon M.D. DR: DANIELA JOB#: [id number] CC: Roberto Ruff M.D.; Fax#: [phone]
--- NOTE | 2016-06-11 12:59 | Discharge Summary ---
Discharge Summary Hospital Course Date of Admission Jun 05, 2016 at 19:47 Date of Discharge Jun 08, 2016 at 15:00 Admitting Diagnosis Pyelonephritis, Hyperglycemia/uncontrolled DM HPI Hortencia Spence is a 55 year old female who was admitted on Jun 05, 2016 at 19: 47 for Pyelonephritis,Hyperglycemia/Uncontrolled Diabetes Hospital Course dc summary #[id number] Discharge Medications New Medications: Ciprofloxacin* (Cipro*) 500 Mg Tablet 500 MG PO BID, #10 TAB Metronidazole* (Flagyl*) 500 Mg Tablet 500 MG ORAL EVERY 8 HOURS, #15 TAB Continued Medications: Amlodipine Besylate* (Amlodipine Besylate*) 5 Mg Tablet 5 MG ORAL DAILY, #30 Aspirin (Aspirin EC) 81 Mg Tablet.dr 81 MG ORAL DAILY, #30 Benazepril Hcl* (Benazepril Hcl*) 40 Mg Tablet 40 MG ORAL DAILY, #30 Glipizide (Glipizide) 10 Mg Tablet 10 MG ORAL BID, #120 Metformin Hcl* (Metformin Hcl*) 1,000 Mg Tablet 1000 MG ORAL BID, #60 Simvastatin (Zocor) 10 Mg Tablet 10 MG ORAL BEDTIME, #30 TAB Sitagliptin* (Januvia*) 25 Mg Tablet 25 MG ORAL DAILY, TAB Discharge Condition Upon Discharge: stable Discharge Disposition Patient was discharged to Home () Discharge Diagnoses: Jordan (Temi)July NP June 11, 2016 12:59
--- NOTE | 2016-06-12 01:08 | Discharge Summary 2 SIG ---
DATE OF ADMISSION: 06/05/2016 DATE OF DISCHARGE: 06/08/2016 REASON FOR ADMISSION: 55-year-old female presented to emergency room with a complaint of abdominal pain. The patient's workup revealed leukocytosis of 21.2. The patient had low-grade fever of 99.8 degrees. Urinalysis revealed evidence of urinary tract infection. CT of the abdomen and pelvis revealed a mural thickening of sigmoid colon and rectum. No other evidence of acute abdominal pelvic disease, hepatic steatosis, or diffuse pancreatic atrophy. Blood sugar was 425. The patient was started on the IV fluids and antibiotics and admitted for further management. ADMITTING DIAGNOSES: 1. Abdominal pain. 2. Pyelonephritis. 3. Hyperglycemia. 4. Diabetes mellitus, out of control. 5. Colon wall thickening. HOSPITAL STAY: The patient was admitted to the medical surgical floor. The patient was started on empiric antibiotics. Urine culture revealed E. coli. Blood culture preliminary negative. ID followed the patient closely. ID cleared for discharge home on five more days of oral antibiotics: Cipro and Flagyl. At the same time, GI consult was requested due to the findings on the CT of the abdomen- colon wall thickening. Patient also had episode fo melena. Hemoglobin was stable. Subsequently, the patient undergone colonoscopy and esophagogastroduodenoscopy with findings of gastritis and colitis, likely ischemic colitis preliminary as per GI . Pathology pending. Patient will be notified of results when available by phone. Pain management provided. Hemoglobin and hematocrit were closely monitored. Blood sugar was managed with sliding scale of insulin while in the hospital. Hemoglobin A1c -11.2, not at goal. The patient at home on triple anti-glycemic regimen of metformin, Januvia, and glipizide. The patient was advised to follow up closely with the primary medical doctor and optimize anti-glycemic medication regimen to bring hemoglobin A1c under the goal. Magnesium was 1.5 on day of discharge. Magnesium was replaced prior to discharge. Blood pressure was managed with calcium channel bo and CAROLYN inhibitor and was stable. Leukocytosis resolved. No fever. Pain management provided. Bowel regimen provided. DISCHARGE DIAGNOSES: 1. Abdominal pain ( due to colitis) 2. Pyelonephritis/Escherichia coli. 3. Hyperglycemia. 4. Diabetes mellitus, out of control. 5. Abdominal pain. 6. Status post colonoscopy and esophagogastroduodenoscopy on 06/08/2016. 7. Gastritis. 8. Possible ischemic colitis. 9. Possible proctocolitis. 10. Hypomagnesemia. 11.Morbid obesity 12. Melena. DISCHARGE MEDICATIONS: See medication reconciliation list. DISCHARGE INSTRUCTIONS: The patient was discharged back home. Follow up with primary medical doctor. Reinforced to continue antibiotics for additional five days. Scripts provided. Hemoglobin and hematocrit were stable. Tighten blood sugar control as per primary medical doctor. Roberto Ruff M.D. July Ortega ([facility] InsaneDeondre NMesfinPMesfin DR: CAROLEE JOB#: [id number] CC: [facility]
== END 2016-06-08 15:00 | disposition home or self-care (01) | DRG 246 ==
LOC: EDBD 12:15 → EMR 13:20 → EDBEDREQ 19:28 → 2E 19:47 → 4W 06-06 16:40
PROC: 0DB68ZX Excision of Stomach, Via Natural or Artificial Opening Endoscopic, Diagnostic (ICD-10-PCS; principal; 2016-06-08 07:43)
PROC: 0DBN8ZX Excision of Sigmoid Colon, Via Natural or Artificial Opening Endoscopic, Diagnostic (ICD-10-PCS; 2016-06-08 07:43)
DX: K55.9 Vascular disorder of intestine, unspecified (principal); K76.0 Fatty (change of) liver, not elsewhere classified; E11.65 Type 2 diabetes mellitus with hyperglycemia; N12 Tubulo-interstitial nephritis, not specified as acute or chronic; Z68.41 Body mass index [BMI] 40.0-44.9, adult; E83.42 Hypomagnesemia; B96.20 Unspecified Escherichia coli [E. coli] as the cause of diseases classified elsewhere; K92.1 Melena; K29.70 Gastritis, unspecified, without bleeding; E66.01 Morbid (severe) obesity due to excess calories; K44.9 Diaphragmatic hernia without obstruction or gangrene; K64.8 Other hemorrhoids
CPT/HCPCS: 36415; 71010; 74177; 74178; 80048; 80053; 80061; 81003; 81025; 82270; 82378; 82962; 83036; 83690; 83735; 84100; 84443; 84484; 85007; 85025; 85610; 85651; 85730; 86140; 87040; 87086; 87181; 94003; 94150; 94664; J1815; J2405